=== PATIENT | female | born 2000 | race Caucasian/White ===

== ENCOUNTER 2020-02-25 22:32 | Emergency (ER) | payer OTHER ==
[~2020-02-25] VITALS: Ht 167.6 cm; Wt 81.6 kg
[2020-02-25 22:45] VITALS: BP_SYST 102
--- NOTE | 2020-02-25 23:04 | NUR ---
Patient triaged and placed in waiting room. VSS and patient appears in no acute distress at this time. Accompanied by partner, awaiting available bed, and MD notified of need for MSE.
[2020-02-26] MEDS ORDERED: LIDOCAINE 1% 10 MG/ML, 20 ML MDV INJ ONE ×2 (00:45→06:15)
--- NOTE | 2020-02-26 06:00 | NUR ---
Pt C/O LT thumb pain. Pt reports swelling and pain x 3 days. Pt denies any fever or drainage from the site. Has full ROM of the extremity. Will continue to monitor.
--- NOTE | 2020-02-26 06:08 | NUR ---
Patient to ER [facility] for evaluation. Side rails up.
--- NOTE | 2020-02-26 06:20 | NUR ---
ER Dr. Jackson at bedside examining patient.
--- NOTE | 2020-02-26 06:32 | NUR ---
I&D Procedure done by Dr Manuel do using sterile technique. Lidocaine 1% used. Wound packed with 4x4 and michelle to wound. Minimal amt of bleeding noted. Wound care discussed w/ patient. Pt tolerated procedure well.
[2020-02-26] MEDS ORDERED: DIPH-TET-PERTUS Vaccine 0.5 ML VIAL (ADACEL) I.M. ONE ×2 (06:45→07:04)
[2020-02-26 06:59] VITALS: BP_SYST 118
--- NOTE | 2020-02-26 07:00 | NUR ---
Patient given written and verbal discharge instructions and verbalizes understanding. ER MD discussed with patient the results and treatment provided. Patient in stable condition. ID arm band removed. Rx of Clindamycin given. Patient educated on pain management and to follow up with PMD. Pain Scale 0. Opportunity for questions provided and answered. Medication side effect fact sheet provided.
== END 2020-02-26 07:00 | disposition home or self-care (01) ==
LOC: SED 22:32
DX: L03.012 Cellulitis of left finger (principal); Z88.0 Allergy status to penicillin; Z88.2 Allergy status to sulfonamides
CPT/HCPCS: 26010; 73130; 90471; 90715; 99283; J2001